=== PATIENT | male | born 1985 | race Caucasian/White ===

== ENCOUNTER 2024-12-01 10:40 | Emergency (ER) | payer OTHER ==
[2024-12-01 10:53] VITALS: TEMP 97.6
[2024-12-01 11:25] LABS: Basophils # (A) 0.04 10*3/uL (0.00-0.10); Basophils % (A) 0.5 %; Eosinophils # (A) 0.18 10*3/uL (0.04-0.35); Eosinophils % (A) 2.0 %; HCT 38.1 % (39.6-50.0); HGB 11.8 g/dL (13.0-17.0); Immature Platelet Fraction 1.1 % (1.1-6.1); Lymphocytes # (A) 0.81 10*3/uL (0.90-5.00); Lymphocytes % (A) 9.1 %; MCH 25.8 pg (27.0-32.0); MCHC 31.0 g/dL (32.0-37.0); MCV 83.2 fL (80.0-97.0); Monocytes # (A) 0.40 10*3/uL (0.20-1.00); Monocytes % (A) 4.5 %; Neutrophils # (A) 7.42 10*3/uL (1.80-7.70); Neutrophils % (A) 83.6 %; Platelet Count 155 10*3/uL (140-440); RBC 4.58 10*6/uL (4.40-5.60); WBC 8.88 10*3/uL (4.50-10.00)
[2024-12-01 11:33] LABS: RDW 27.7 % (11.5-14.5)
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
[2024-12-01 11:39] LABS: ALT 18 U/L (4-49); African American GFR (CKD) >90 (>60 ml/min/1.73 sqM); Amylase 79 U/L (30-110); Anion Gap 20 mmol/L; Blood Urea Nitrogen 16 mg/dL (9-20); Calcium 10.5 mg/dL (8.4-10.2); Chloride 111 mmol/L (98-107); Glucose 92 mg/dL (74-99); Lipase 218 U/L (23-300); Non-African American GFR(CKD) >90 (>60 ml/min/1.73 sqM); Sodium 140 mmol/L (137-145); Total Protein 7.7 g/dL (6.3-8.2)
[2024-12-01 11:43] LABS: AST 47 U/L (17-59); Albumin 4.0 g/dL (3.5-5.0); Carbon Dioxide 9 mmol/L (22-30); Potassium 4.3 mmol/L (3.5-5.1)
[2024-12-01 11:44] LABS: Alkaline Phosphatase 116 U/L (38-126)
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
[2024-12-01 12:12] LABS: INR 1.1 (<1.2); Partial Thromboplastin Time 25.4 sec (22.0-30.0); Prothrombin Time 12.1 sec (10.0-12.5)
[2024-12-01 12:32] LABS: Anisocytosis (M) Present; Spherocytes Present
[2024-12-01] MEDS: PANTOPRAZOLE 40 MG/10 ML VIAL IVP STA (13:31)
[2024-12-01] MEDS: HYDROmorphone 1 MG/ML 1 ML SYRINGE IVP STA ×2 (13:31→15:45)
[2024-12-01] MEDS: SODIUM CHLORIDE 0.9% 1,000 ML IV ONE (13:31)
[2024-12-01] MEDS: ACETAMINOPHEN TAB 325 MG TAB PO STA (13:32)
[2024-12-01] MEDS: ONDANSETRON 4 MG/2 ML VIAL IVP STA (13:32)
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
[2024-12-01 16:04] LABS: Bacteria,Urine Occasional /hpf; Bilirubin,Urine Negative (Negative); Blood,Urine Large (Negative); Budding Yeast,Urine Occasional /hpf; Color,Urine Colorless; Glucose,Urine (UA) Negative (Negative); Ketones,Urine Trace (Negative); Leukocyte Esterase,Urine Large (Negative); Mucus,Urine Rare /hpf; Nitrite,Urine Negative (Negative); PH, Urine 6.5 (5.0-8.0); Protein,Urine Trace (Negative); RBC,Urine >182 /hpf (0-5); Squamous Epithelial Cell,Urine 1 /hpf (0-4); Urobilinogen,Urine <2.0 mg/dL (<2.0); WBC,Urine 54 /hpf (0-5)
[2024-12-01 16:07] LABS: Specific Gravity,Urine >1.050 (1.001-1.035)
[2024-12-01 17:42] VITALS: BP 169/97; PULSE 84; RESP 18
== END 2024-12-01 17:53 | disposition other institution (70) ==
LOC: EC 10:40
DX: K70.30 Alcoholic cirrhosis of liver without ascites (principal); K92.0 Hematemesis; Z87.11 Personal history of peptic ulcer disease; Z87.440 Personal history of urinary (tract) infections; F17.290 Nicotine dependence, other tobacco product, uncomplicated; Z88.1 Allergy status to other antibiotic agents
CPT/HCPCS: 36415; 93005; 86900; 86901; 80053; 82150; 83605; 83690; 84484; 85025; 85610; 85730; 86850; 82272; 81001; 87040; 74018; 74174; 99285; 96365; 96375; 96376; 96361; J2405; J0696; J1171; Q9967; J2470